=== PATIENT | female | born 1985 | race Caucasian/White ===

== ENCOUNTER 2023-12-16 11:40 | Emergency (ER) | payer OTHER, SELFPAY ==
[2023-12-16 11:42] VITALS: BP 142/82
[2023-12-16 12:14] LABS: COVID-19 Antigen Negative (Negative)
--- NOTE | 2023-12-16 13:30 | ED.GENMED ---
History of Present Illness
General
Chief Complaint: Cold/Flu/URI Symptoms
Source: patient
Exam Limitations: none
Time Seen by Provider: 12/16/23 12:49
Nursing documentation reviewed up to this point in time: agreed with
Travel History
Have you had any contact with someone who has COVID-19?: No
Do you have any symptoms of coronavirus? Fever > 100 degrees, chills, cough, shortness of breath, sore throat, loss of taste or smell, muscle aches, or headache?: Yes
Symptoms:: SOB
History of Present Illness
History of Present Illness:
pt is a 38 y/o F with h/o newly diagnosed marginal zone splenic lymphoma ([facility], has not started treatment yet)
here with sob and cough
started with cough and cold sypmtoms 4 dyas ago, cough has been spastic at times and now her ribs feel sore but since yesterday sh efeels like she cannot catch her breath and she has a pain in her left lower ribs/upper abd with deep breathing. she
has splenomegaly related to her lymphoma
she has not had any trauma to her abdomen
no fever/chills, sore throat, vomiting, diarrhea.
Past History
Past History
ED Past Medical History: None
ED Past Surgical History:
Social History
Tobacco: Non-smoker
Personal:
Living: with family
Family History
Family History: Other (Noncontributory)
Review of Systems
Review of Systems
Allergies reviewed?: Yes
All Other Systems: Not applicable
Phy Exam
Physical Exam
Physical Exam:
GENERAL: Alert , in no apparent distress
EYE: pupils equal and reactive
NECK: Supple
ENT: o/p clr, mmm.
CARDIAC: Regular rate and rhythm .no tachycardia
LUNGS: cough, no tachypnea, holding left lower ribs with coughing; rhonchi left base; no wheezing
ribs: slight tenderness left lower atnerior
no deformity
ABDOMEN: Soft, without focal tenderness, no r/g, no cvat, normal bowel sounds
NEUROLOGICAL: Alert and oriented, no focal neuro deficits
SKIN: Warm and dry, skin intact.
MUSCULOSKELETAL: No edema, well perfused. neg angelina's sign
PSYCH: Normal and appropriate interaction.
Course
Orders/Labs/Results
Orders:
Orders
12/16/23 11:47
CR Chest - 2 Views Urgent
Comment:
Reason For Exam: SOB
12/16/23 11:51
COVID-19 Antigen Urgent
Source: Nasal Swab
Influenza A+B Rapid Molecular Urgent
SHIMA Source: Nasal Swab
Specimen Description:
12/16/23 13:33
Ketorolac [Toradol] 15 mg IV NOW STA
12/16/23 13:34
CT Chest Pe Study Urgent
Comment:
Reason For Exam: left pleuritic pain, h/o new splenic lymphoma
12/16/23 13:35
Electrocardiogram (*1) Urgent
Reason for Study: Shortness of Breath
EKG- Treatment ONCE
12/16/23 13:42
Test Result ONCE
12/16/23 14:14
Complete Blood Count/With Diff Urgent
Comprehensive Metabolic Panel Urgent
HCG, Serum Qualitative Screen Urgent
Lipase Urgent
Abnormal Lab Results
12/16/23
14:14
WBC 4.2 L 10^3/uL
(4.8-10.8)
Hgb 11.7 L g/dL
(12.0-16.0)
Hct 35.4 L %
(37.0-47.0)
MCV 77.6 L fL
(81.0-99.0)
MCH 25.7 L pg
(27.0-31.0)
RDW 14.6 H %
(11.5-14.5)
Plt Count 123 L 10^3/uL
(130-400)
Absolute Lymphs (auto) 0.9 L 10^3/uL
(1.2-3.4)
Glucose 100 H mg/dl
(70-99)
12/16/23 14:14
12/16/23 14:14
Vital Signs
Initial and Last Documented VS:
Initial Vital Signs
Temp Pulse Resp BP Pulse Ox
98.2 F 89 20 142/82 100
12/16/23 11:42 12/16/23 11:42 12/16/23 11:42 12/16/23 11:42 12/16/23 11:42
Last Documented Vital Signs
Temp Pulse Resp BP Pulse Ox
98.2 F 72 18 130/60 99
12/16/23 11:42 12/16/23 15:58 12/16/23 15:58 12/16/23 15:58 12/16/23 15:58
MDM/Problems Addressed
Differential Diagnosis Includes:
PE pneumonia, splenic rupture
MDM/Problems Addressed:
38 y/o F with cough x a few days, now with left lower rib pain
in setting of splenomegaly related to a form of NHL
hasn't started treatmnet yet
instructed to get seen by onc
here with normal pulse ox
slght tenderness left lower rib
splenomegaly but wihtout signficatn tendenress
most pain is with deep breathing
pt has spastic cough
wbc slightly low
flu and covid neg
chest xray indep reviewed by me and neg
ct chest no PE
no pneurmoina
known splenomegaly
d/w ed attending
d/c home,
offered steroids to patient BUT SHE WILL REACH OUT TO HER ONCOLOGIST, WAS DOIN IT WHILE I WAS IN THE ROOM, ON HER PATIENT PORTAL TO ASK IF THIS IS OK TO TAKE for her cough
tessalon
pt is requesting codeine to help with cough
will do a few t#3.
*Critical Care Note
Total Time (30-74mins, 75-104mins- exclusive of procedures): Not Applicable
ED Attending Note
-
Portions of this chart may have been created with voice recognition software.� Occasional wrong word or��sound alike� substitutions may have occurred due to the inherent limitations of voice recognition software.
Discharge Plan
Departure
Patient Disposition: Home (Routine Discharge)
Date of Disposition: 12/16/23
Time of Disposition: 15:32
Patient with high blood pressure during this ER visit?: No
Condition: Fair
Covid-19: Not Applicable
Discharge Problem:
Bronchitis, Chest wall pain
Instructions: Acute Bronchitis, Adult (DC)
Prescriptions:
New
benzonatate 200 mg capsule
200 mg PO TID PRN (Reason: Cough) Qty: 15 0RF
acetaminophen-codeine 300-15 mg tablet
1 tab PO HS PRN (Reason: cough) Qty: 10 0RF
prednisone 50 mg tablet
50 mg PO DAILY Qty: 5 0RF
No Action
ibuprofen 600 MG tablet
600 mg PO Q4HPRN PRN (Reason: moderate pain/cramps) Qty: 30 0RF
multivitamin with folic acid [Tab-A-Ac] 1 TABLET tablet
1 tab PO DAILY
Oxycodone
1 - 2 tab PO Q4HPRN PRN (Reason: pain)
hydrocodone-acetaminophen 5-325 mg tablet
1 tab PO Q6H PRN (Reason: pain) Qty: 10 0RF
prednisone 10 mg tablets,dose pack
See Rx Instructions .ROUTE .COMPLEX Qty: 21 0RF
Rx Instructions:
orally per package directions
Referrals:
Maria Esther Palacios PA [Family Provider] -
Activity Restrictions/Additional Instructions:
For your bronchitis you can use guaifenesin which is Mucinex [id number] as needed. This will help loosen the secretions he can cough it up. You can continue your inhaler as needed every 4-6 hours. Try Tessalon pearls 2 times a day. If you
absolutely are having too much pain or cannot sleep you can try a Tylenol with codeine at night. (ONE OR TWO TABS AT NIGHT NEEDED)
I prescribed a few days of steroids, make sure your oncologist is okay with this before starting them. Take once a day starting today if you are able to. If her symptoms persist past 10 days you could consider calling your doctor or being seen
again to see if whether you need some antibiotics.
Return for worsening chest pain or shortness of breath, passing out, high fever or any concerns
Interventions
Interventions:
*Risk Screen - Suicide Last Done: 12/16/23 11:45
*General Assessment Last Done: 12/16/23 11:45
*Neglect/Abuse Screening Last Done: 12/16/23 11:45
ED- Fall Risk Assessment Last Done: 12/16/23 13:54
*ED COVID-19 Vaccine History Last Done: 12/16/23 11:46
*Nursing Disposition Last Done: 12/16/23 15:58
ED- Cardiac Assessment Last Done: 12/16/23 13:54
ED- Pulmonary Assessment Last Done: 12/16/23 13:54
Discharge Date and Time
Discharge Date/Time: 12/16/23 15:59
[2023-12-16 13:54] VITALS: BMI 33.7
[2023-12-16 14:17] VITALS: BP 114/61
[2023-12-16] MEDS: TORADOL 15 MG IV (14:24)
[2023-12-16 14:28] LABS: % Basophils 0.2 % (0-2); % Eosinophils 2.8 % (0-6); % Immature Granulocytes 0.2 % (0-0.5); % Monocytes 6.4 % (1.7-9.3); % Neutrophils 69.4 % (42.2-75.2); Absolute Eosinophils 0.1 10^3/uL (0-0.7); Absolute Lymphocytes 0.9 10^3/uL (1.2-3.4); Absolute Monocytes 0.3 10^3/uL (0.1-0.6); Absolute Neutrophils 2.9 10^3/uL (1.4-6.5); Hematocrit 35.4 % (37.0-47.0); Hemoglobin 11.7 g/dL (12.0-16.0); Mean Corp Hgb Conc. 33.1 g/dL (33.0-37.0); Mean Corpuscular Hgb 25.7 pg (27.0-31.0); Mean Corpuscular Volume 77.6 fL (81.0-99.0); Mean Platelet Volume 9.5 fL (7.4-10.4); Nucleated Red Blood Cells % 0 %; Platelet Count 123 10^3/uL (130-400); Red Blood Cell Count 4.56 10^6/uL (4.20-5.40); Red Cell Dist. Width 14.6 % (11.5-14.5); White Blood Cell Count 4.2 10^3/uL (4.8-10.8)
[2023-12-16 14:35] LABS: HCG, Serum Qualitative Screen Negative
[2023-12-16 14:39] LABS: ALT (SGPT) 28 U/L (0-35); AST (SGOT) 35 U/L (14-36); Albumin 4.1 g/dl (3.5-5.0); Alkaline Phosphatase 75 U/L (38-126); Blood Urea Nitrogen 8 mg/dl (7-17); Carbon Dioxide 28 mmol/L (22-30); Chloride 106 mmol/L (98-107); Estimated Creatinine Clearance > 125 ml/min; Glucose 100 mg/dl (70-99); Lipase 62 U/L (23-300); Potassium 4.3 mmol/L (3.5-5.1); Sodium 139 mmol/L (135-145); Total Bilirubin 0.7 mg/dl (0.2-1.3); Total Protein 6.6 g/dl (6.3-8.2); eGFR > 60.00
--- NOTE | 2023-12-16 15:55 | EDRN ---
Reviewed discharge instructions with patient. Verbalized understanding. Ambulated with steady gait to the lobby.
[2023-12-16 15:58] VITALS: BP 130/60
== END 2023-12-16 15:59 | disposition home or self-care (01) ==
LOC: EMR 11:40
PROVIDERS: Emergency Medicine; Physician Assistant; EMERGENCY PHYSICIAN Emergency Medicine; FAMILY PHYSICIAN Physician Assistant Medical
DX: J40 Bronchitis, not specified as acute or chronic (principal); R07.89 Other chest pain; R16.1 Splenomegaly, not elsewhere classified; C83.00 Small cell B-cell lymphoma, unspecified site; Z11.52 Encounter for screening for COVID-19
CPT/HCPCS: 99285; 96374; 71046; 71275; 80053; 83690; 84703; 85025; 87502; 87811; 93005; Q9967

== ENCOUNTER 2024-02-27 14:18 | Emergency (ER) | payer OTHER, SELFPAY ==
[2024-02-27 14:23] VITALS: BP 129/67
--- NOTE | 2024-02-27 14:43 | ED.GENMED ---
History of Present Illness
General
Chief Complaint: Abdominal Pain
Source: patient
Exam Limitations: none
Time Seen by Provider: 02/27/24 14:39
Travel History
Have you had any contact with someone who has COVID-19?: No
Do you have any symptoms of coronavirus? Fever > 100 degrees, chills, cough, shortness of breath, sore throat, loss of taste or smell, muscle aches, or headache?: No
History of Present Illness
History of Present Illness:
See MDM
Past History
Past History
ED Past Medical History: Cancer (NHL)
ED Past Surgical History:
Social History
Tobacco: Non-smoker
Personal:
Living: with family
Family History
Family History: Other (Noncontributory)
Phy Exam
Physical Exam
Physical Exam:
See MDM
Course
Orders/Labs/Results
Orders:
Orders
02/27/24 14:42
0.9% Sodium Chloride 1000 ml [Nss] 1,000 ml IV BOLUS
Ketorolac [Toradol] 30 mg IV NOW STA
Morphine Sulfate 4 mg IV NOW STA
Ondansetron Injectable [Zofran] 4 mg IV NOW STA
Test Result ONCE
US Abdomen Complete/Upper Urgent
Comment:
Reason For Exam: RUQ pain
02/27/24 14:52
Complete Blood Count/With Diff Urgent
Comprehensive Metabolic Panel Urgent
HCG, Serum Qualitative Screen Urgent
Lipase Urgent
02/27/24 16:03
CT Abd/pelvis W Iv Cont Urgent
Comment: Active NH lymphoma
Reason For Exam: mid abd pain, nausea
02/27/24 16:43
Morphine Sulfate 4 mg IV NOW STA
Abnormal Lab Results
02/27/24
14:52
WBC 20.1 H 10^3/uL
(4.8-10.8)
MCV 77.1 L fL
(81.0-99.0)
RDW 18.2 H %
(11.5-14.5)
Abs Immat Gran (auto) 0.1 H 10^3/uL
(0-0.05)
Absolute Neuts (auto) 17.7 H 10^3/uL
(1.4-6.5)
Absolute Monos (auto) 0.8 H 10^3/uL
(0.1-0.6)
Neutrophils % 88.0 H %
(42.2-75.2)
Lymphocytes % 6.5 L %
(20.5-51.1)
Glucose 102 H mg/dl
(70-99)
Total Bilirubin 2.8 H mg/dl
(0.2-1.3)
02/27/24 14:52
02/27/24 14:52
Vital Signs
Initial and Last Documented VS:
Initial Vital Signs
Temp Pulse Resp BP Pulse Ox
98.0 F 116 24 129/67 100
02/27/24 14:23 02/27/24 14:23 02/27/24 14:23 02/27/24 14:23 02/27/24 14:23
Last Documented Vital Signs
Temp Pulse Resp BP Pulse Ox
98.0 F 116 24 129/67 100
02/27/24 14:23 02/27/24 14:23 02/27/24 14:23 02/27/24 14:23 02/27/24 14:23
MDM/Problems Addressed
Differential Diagnosis Includes:
HPI and MDM Narrative:
38-year-old female presenting with mid and right upper abdominal pain since 230 this morning. Patient states she was unable to sleep. Patient has been nauseous and has vomited. She does have a recent diagnosis of non-Hodgkin's lymphoma. She has
been on rituximab for the past month. She has not had any issues with this medicine in the past
On exam, patient is uncomfortable. She has mid upper and right upper abdominal tenderness. Although abdominal pain, nausea and vomiting is a known adverse effect of rituximab, will obtain ultrasound to rule out gallbladder pathology. Will give
Toradol and morphine
Physical exam
General: Uncomfortable
HEENT: protecting airway
Neck: appears supple
CV: No evidence of cyanosis
Resp: No accessory muscle use
Abd: Non-distended. Tenderness to right upper quadrant abdomen
Extremities: No deformities
Neuro: alert
Psych: Tearful
Skin: Intact
Problems Addressed including Acute and Chronic Conditions affecting care:
1. Right upper quadrant abdominal pain
Acuity: acute
Prognosis: stable
Details: Will obtain ultrasound to rule out gallbladder pathology. Will give Toradol and morphine.
Updates
4 PM ultrasound negative for acute pathology. Splenomegaly has improved. Patient feeling better on reassessment. We discussed the elevated bilirubin and the elevated white blood cell count. Given the lab abnormalities, will obtain CT. Patient
states her bilirubin has been elevated in the past
CT negative for acute pathology. Patient feels better and feels comfortable going home. Discussed having her symptoms and lab work abnormalities reevaluated by her doctor
Differential Diagnosis (but not limited to): Adverse drug effect, pancreatitis, cholecystitis
Testing considered: CT abdomen/pelvis but will obtain ultrasound first
Drug therapy (if applicable): OTC meds, please see d/c instruction regarding Rx drugs
Amount and/or Complexity of Data Reviewed
Clinical info obtained from: Patient
External data reviewed: N/A
Labs I independently reviewed (but not limited to): Leukocytosis, elevated bilirubin
Radiology: The CT scan was personally and independently reviewed. In addition, official CT report reviewed.
Pulse Ox: not hypoxic
EKG independently reviewed: N/A
Awake Overnight Monitor: N/A
Critical Care: N/A
Risk of Complication:
Social Determinants of health: Good social support
Discussed with other providers: N/A
Escalation of Care includes Admit/Obs: After being observed in the Emergency Department, pt stable for discharge.
Occasional wrong word or 'sound a like' substitutions may have occurred due to the inherent limitations of voice recognition software. Read the chart carefully and recognize, using context, where substitutions have occurred.
*Critical Care Note
Total Time (30-74mins, 75-104mins- exclusive of procedures): Not Applicable
ED Attending Note
-
Portions of this chart may have been created with voice recognition software.� Occasional wrong word or��sound alike� substitutions may have occurred due to the inherent limitations of voice recognition software.
Discharge Plan
Departure
Patient Disposition: Home (Routine Discharge)
Date of Disposition: 02/27/24
Time of Disposition: 19:14
Patient with high blood pressure during this ER visit?: No
Discharge Problem:
Abdominal pain
Instructions: Abdominal Pain
Prescriptions:
New
oxycodone 5 mg tablet
5 mg PO Q8H PRN (Reason: Pain) Qty: 14 0RF
No Action
ibuprofen 600 MG tablet
600 mg PO Q4HPRN PRN (Reason: moderate pain/cramps) Qty: 30 0RF
multivitamin with folic acid [Tab-A-Ac] 1 TABLET tablet
1 tab PO DAILY
Oxycodone
1 - 2 tab PO Q4HPRN PRN (Reason: pain)
hydrocodone-acetaminophen 5-325 mg tablet
1 tab PO Q6H PRN (Reason: pain) Qty: 10 0RF
prednisone 10 mg tablets,dose pack
See Rx Instructions .ROUTE .COMPLEX Qty: 21 0RF
Rx Instructions:
orally per package directions
benzonatate 200 mg capsule
200 mg PO TID PRN (Reason: Cough) Qty: 15 0RF
acetaminophen-codeine 300-15 mg tablet
1 tab PO HS PRN (Reason: cough) Qty: 10 0RF
prednisone 50 mg tablet
50 mg PO DAILY Qty: 5 0RF
Referrals:
Maria Esther Palacios PA [Family Provider] -
Activity Restrictions/Additional Instructions:
Please return for any worsening symptoms.
You may return at any time if you have further concerns.
Please follow up with your doctor at the first available appointment, preferably this week. Please have your symptoms and blood work reevaluated.
You were given a prescription for narcotics. If you require this pain medicine, please take a daily [id number] stool softener to avoid constipation.
Thank you for choosing [facility].
Interventions
Interventions:
*Risk Screen - Suicide Last Done: 02/27/24 14:54
*Neglect/Abuse Screening Last Done: 02/27/24 14:54
ED- Fall Risk Assessment Last Done: 02/27/24 15:02
*ED COVID-19 Vaccine History Last Done: 02/27/24 14:54
JX-Axdqht-Yhozrxvuse Assessment Last Done: 02/27/24 14:54
Discharge Date and Time
Print Language: [place]
[2024-02-27] MEDS: TORADOL 30 MG IV (14:49)
[2024-02-27] MEDS: MORPHINE SULFATE 4 MG IV ×2 (14:50→16:47)
[2024-02-27] MEDS: ZOFRAN 4 MG IV (14:50)
[2024-02-27] MEDS: NSS 1000 IV (14:51)
[2024-02-27 15:02] LABS: % Basophils 0.4 % (0-2); % Eosinophils 0.6 % (0-6); % Immature Granulocytes 0.5 % (0-0.5); % Lymphocytes 6.5 % (20.5-51.1); Absolute Basophils 0.1 10^3/uL (0-0.2); Absolute Eosinophils 0.1 10^3/uL (0-0.7); Absolute Immature Granulocytes 0.1 10^3/uL (0-0.05); Absolute Lymphocytes 1.3 10^3/uL (1.2-3.4); Absolute Monocytes 0.8 10^3/uL (0.1-0.6); Absolute Neutrophils 17.7 10^3/uL (1.4-6.5); Hematocrit 41.4 % (37.0-47.0); Hemoglobin 14.6 g/dL (12.0-16.0); Mean Corp Hgb Conc. 35.3 g/dL (33.0-37.0); Mean Corpuscular Hgb 27.2 pg (27.0-31.0); Mean Corpuscular Volume 77.1 fL (81.0-99.0); Nucleated Red Blood Cells % 0 %; Platelet Count 148 10^3/uL (130-400); Red Blood Cell Count 5.37 10^6/uL (4.20-5.40); Red Cell Dist. Width 18.2 % (11.5-14.5); White Blood Cell Count 20.1 10^3/uL (4.8-10.8)
[2024-02-27 15:15] LABS: ALT (SGPT) 32 U/L (0-35); AST (SGOT) 25 U/L (14-36); Albumin 4.4 g/dl (3.5-5.0); Alkaline Phosphatase 83 U/L (38-126); Blood Urea Nitrogen 12 mg/dl (7-17); Calcium 9.3 mg/dl (8.4-10.2); Carbon Dioxide 24 mmol/L (22-30); Chloride 101 mmol/L (98-107); Glucose 102 mg/dl (70-99); Lipase 109 U/L (23-300); Potassium 3.9 mmol/L (3.5-5.1); Sodium 137 mmol/L (135-145); Total Bilirubin 2.8 mg/dl (0.2-1.3); Total Protein 6.9 g/dl (6.3-8.2); eGFR > 60.00
[2024-02-27 15:24] LABS: HCG, Serum Qualitative Screen Negative
[2024-02-27 18:30] VITALS: BP 134/88
[2024-02-27] MEDS: PERCOCET 5/325 1 TABLET PO (19:18)
== END 2024-02-27 20:43 | disposition home or self-care (01) ==
LOC: EMR 14:18
PROVIDERS: EMERGENCY PHYSICIAN Student in an Organized Health Care Education/Training Program; FAMILY PHYSICIAN Physician Assistant Medical
DX: R10.9 Unspecified abdominal pain (principal)
CPT/HCPCS: 99285; 96374; 96375 ×2; 96361; 96376; 74177; 76700; 80053; 83690; 84703; 85025; Q9967

== ENCOUNTER → 2024-04-20 10:22 | Outpatient (REF) | payer OTHER, SELFPAY | LOC: PET 10:22 | PROVIDERS: ATTENDING PHYSICIAN Internal Medicine Hematology & Oncology | DX: C83.07 Small cell B-cell lymphoma, spleen (principal) | CPT/HCPCS: 78815; A9552 ==

== ENCOUNTER 2024-06-27 10:37 | Outpatient (RCR) | payer OTHER, SELFPAY | END 2024-06-27 23:59 | disposition home or self-care (01) | LOC: RPT 10:37 | PROVIDERS: ATTENDING PHYSICIAN Physician Assistant Medical | DX: M25.571 Pain in right ankle and joints of right foot (principal); Z73.6 Limitation of activities due to disability; R26.89 Other abnormalities of gait and mobility; R26.2 Difficulty in walking, not elsewhere classified; M62.81 Muscle weakness (generalized); M79.89 Other specified soft tissue disorders | CPT/HCPCS: 97110; 97162 ==

== ENCOUNTER 2024-08-05 13:12 | Emergency (ER) | payer OTHER, SELFPAY ==
[2024-08-05 13:27] VITALS: BP 143/75
--- NOTE | 2024-08-05 15:10 | ED.GENMED ---
History of Present Illness
General
Chief Complaint: Chest Pain
Source: patient and family
Exam Limitations: none
Time Seen by Provider: 08/05/24 14:30
Nursing documentation reviewed up to this point in time: agreed with
History of Present Illness
History of Present Illness:
38-year-old female history of panic disorder, on sertraline, splenic lymphoma followed by Dr. Moreno receives infusions, sounds like Rituxan, no history of CAD no history of DVT PE, 2 prior C-sections does not drink or smoke, presents with a panic
attack chest pain shortness of breath while at a store, similar more severe to prior panic attack she is asking about having a prescription for lorazepam to use as needed, though she states she has not needed now no calf pain no fevers no hemoptysis
Past History
Past History
ED Past Medical History: Cancer (NHL)
ED Past Surgical History:
Social History
Tobacco: Non-smoker
Alcohol: None
Drug: None
Personal:
Living: with family
Employment: Employed
Family History
Family History: Other (Panic disorder and)
Review of Systems
Review of Systems
All Other Systems: Not applicable
Constitutional: Denies fever or fatigue
Respiratory: Reports trouble breathing
Cardiac: Reports chest pain and palpitations; Denies diaphoresis
: Reports no symptoms
Psychiatric: Reports anxiety
Phy Exam
Physical Exam
Physical Exam:
Physical Exam
General: no apparent distress, not acutely ill
Neck: No jaundice
Heart: s1/s2 regular rate and rhythm, no murmur. equal radial pulses.
Lungs: no acute respiratory distress. clear bilaterally
Abdomen: Nontender
Neuro: alert and oriented. no focal neurological deficits
Skin: no rash
Psychiatric: well kept. interactive and cooperative
Extremities: no edema. no calf tenderness
Scores
Heart Score for Chest Pain Patients
STEMI patient?: No
History: Slightly or Non-Suspicious
ECG: Normal
Age: </= 45 years
Risk Factors: No Risk Factors
Troponin: </= Normal Limit
Heart Score for Chest Pain Patients: 0
Heart Score Risk: 2.5% MACE over next 6 weeks
Course
Orders/Labs/Results
Orders:
Orders
08/05/24 13:14
EKG [Electrocardiogram (*1)] Urgent
Reason for Study: Chest Pain
EKG- Treatment ONCE
08/05/24 14:45
IV Insert/Care/Rem.- Treatment PRN
08/05/24 14:46
Cardiac Monitoring- Treatment ONCE
Test Result ONCE
CR Chest - 2 Views Urgent
Comment:
Reason For Exam: cp
08/05/24 16:20
Complete Blood Count/With Diff Urgent
Comprehensive Metabolic Panel Urgent
D-Dimer Urgent
HCG, Serum Qualitative Screen Urgent
Magnesium Urgent
TSH Urgent
Troponin I Urgent
Abnormal Lab Results
08/05/24
16:20
RDW 14.7 H %
(11.5-14.5)
08/05/24 16:20
08/05/24 16:20
Vital Signs
Initial and Last Documented VS:
Initial Vital Signs
Temp Pulse Resp BP Pulse Ox
98.2 F 88 16 143/75 100
08/05/24 13:27 08/05/24 13:27 08/05/24 13:27 08/05/24 13:27 08/05/24 13:27
Last Documented Vital Signs
Temp Pulse Resp BP Pulse Ox
98.2 F 88 16 143/75 100
08/05/24 13:27 08/05/24 13:27 08/05/24 13:27 08/05/24 13:27 08/05/24 13:27
MDM/Problems Addressed
Differential Diagnosis Includes:
Panic disorder arrhythmia PE doubt ACS unlikely pneumothorax
MDM/Problems Addressed:
Chest pain shortness of breath
Chronic conditions affecting care: Psychiatric illness and Cancer
Acute Exacerbation and/or Progression of Chronic Illness: Psychiatric illness and Cancer
*EKG
Interpreted by ED Provider?: Yes
Interpretation: normal
Comparison EKG: no comparison EKG present
[place]: normal axis
Ischemia: no ischemia
*Test Kitchen Home Economist Interpretation
Rate: normal
Interpretation: normal
Heart Rate: 78
Rhythm: sinus
*Critical Care Note
Total Time (30-74mins, 75-104mins- exclusive of procedures): Not Applicable
Update Note
Update Note:
Update chest x-ray noted troponin D-dimer noted
Patient updated she appears comfortable
ED Attending Note
-
Portions of this chart may have been created with voice recognition software.� Occasional wrong word or��sound alike� substitutions may have occurred due to the inherent limitations of voice recognition software.
Discharge Plan
Departure
Patient Disposition: Home (Routine Discharge)
Date of Disposition: 08/05/24
Time of Disposition: 17:06
Patient with high blood pressure during this ER visit?: No
Condition: Good
Covid-19: Not Applicable
Discharge Problem:
Panic attack
Instructions: Chest Pain PCP Follow Up, Panic Attack ED
Prescriptions:
New
lorazepam [Ativan] 1 mg tablet
1 mg PO DAILY PRN (Reason: anxiety) Qty: 10 0RF
No Action
ibuprofen 600 MG tablet
600 mg PO Q4HPRN PRN (Reason: moderate pain/cramps) Qty: 30 0RF
multivitamin with folic acid [Tab-A-Ac] 1 TABLET tablet
1 tab PO DAILY
Oxycodone
1 - 2 tab PO Q4HPRN PRN (Reason: pain)
hydrocodone-acetaminophen 5-325 mg tablet
1 tab PO Q6H PRN (Reason: pain) Qty: 10 0RF
prednisone 10 mg tablets,dose pack
See Rx Instructions .ROUTE .COMPLEX Qty: 21 0RF
Rx Instructions:
orally per package directions
benzonatate 200 mg capsule
200 mg PO TID PRN (Reason: Cough) Qty: 15 0RF
acetaminophen-codeine 300-15 mg tablet
1 tab PO HS PRN (Reason: cough) Qty: 10 0RF
prednisone 50 mg tablet
50 mg PO DAILY Qty: 5 0RF
oxycodone 5 mg tablet
5 mg PO Q8H PRN (Reason: Pain) Qty: 14 0RF
Referrals:
Maria Esther Palacios PA [Family Provider] - Next open appointment
Activity Restrictions/Additional Instructions:
Continue your sertraline as prescribed
You can use lorazepam 1 mg as needed for severe anxiety
Follow-up with your primary care provider
Interventions
Interventions:
*Risk Screen - Suicide Last Done: 08/05/24 13:27
*General Assessment Last Done: 08/05/24 13:27
*Neglect/Abuse Screening Last Done: 08/05/24 13:27
Discharge Date and Time
Print Language: [place]
[2024-08-05 16:33] LABS: % Basophils 0.2 % (0-2); % Immature Granulocytes 0.4 % (0-0.5); % Lymphocytes 20.6 % (20.5-51.1); % Monocytes 5.9 % (1.7-9.3); % Neutrophils 70.9 % (42.2-75.2); Absolute Eosinophils 0.2 10^3/uL (0-0.7); Absolute Lymphocytes 1.7 10^3/uL (1.2-3.4); Absolute Monocytes 0.5 10^3/uL (0.1-0.6); Absolute Neutrophils 5.9 10^3/uL (1.4-6.5); Hematocrit 37.2 % (37.0-47.0); Mean Corp Hgb Conc. 34.9 g/dL (33.0-37.0); Mean Corpuscular Hgb 28.7 pg (27.0-31.0); Mean Corpuscular Volume 82.1 fL (81.0-99.0); Mean Platelet Volume 9.9 fL (7.4-10.4); Nucleated Red Blood Cells % 0 %; Platelet Count 182 10^3/uL (130-400); Red Blood Cell Count 4.53 10^6/uL (4.20-5.40); Red Cell Dist. Width 14.7 % (11.5-14.5); White Blood Cell Count 8.3 10^3/uL (4.8-10.8)
[2024-08-05 16:48] LABS: D-Dimer < 0.27 ug/mlFEU (0.00-0.50)
[2024-08-05 16:52] LABS: HCG, Serum Qualitative Screen Negative
[2024-08-05 16:54] LABS: ALT (SGPT) 21 U/L (0-35); AST (SGOT) 29 U/L (14-36); Albumin 4.7 g/dl (3.5-5.0); Alkaline Phosphatase 67 U/L (38-126); Blood Urea Nitrogen 13 mg/dl (7-17); Calcium 9.7 mg/dl (8.4-10.2); Carbon Dioxide 29 mmol/L (22-30); Chloride 101 mmol/L (98-107); Glucose 93 mg/dl (70-99); Magnesium 2.1 mg/dl (1.6-2.3); Sodium 141 mmol/L (135-145); Total Bilirubin 1.3 mg/dl (0.2-1.3); Total Protein 7.1 g/dl (6.3-8.2); eGFR > 60.00
[2024-08-05 16:56] LABS: Troponin I < 0.012 ng/ml
[2024-08-05 17:25] LABS: TSH 1.59 uIU/ml (0.47-4.68)
[2024-08-05 18:15] VITALS: BP 138/72
== END 2024-08-05 18:15 | disposition home or self-care (01) ==
LOC: EMR 13:12
PROVIDERS: EMERGENCY PHYSICIAN Emergency Medicine; FAMILY PHYSICIAN Physician Assistant Medical
DX: F41.0 Panic disorder [episodic paroxysmal anxiety] (principal)
CPT/HCPCS: 99285; 71046; 80053; 83735; 84443; 84484; 84703; 85025; 85379; 93005

== ENCOUNTER 2024-08-08 13:00 | Outpatient (RCR) | payer OTHER, SELFPAY | END 2024-08-08 23:59 | disposition home or self-care (01) | LOC: RPT 13:00 | PROVIDERS: ATTENDING PHYSICIAN Physician Assistant Medical | DX: M25.571 Pain in right ankle and joints of right foot (principal); Z73.6 Limitation of activities due to disability; R26.89 Other abnormalities of gait and mobility; M62.81 Muscle weakness (generalized); R26.2 Difficulty in walking, not elsewhere classified | CPT/HCPCS: 97010; 97110; 97112; 97140; 97530 ==

== ENCOUNTER → 2024-08-16 10:20 | Outpatient (REF) | payer OTHER, SELFPAY | LOC: PET 10:20 | PROVIDERS: ATTENDING PHYSICIAN Internal Medicine Hematology & Oncology | DX: C83.07 Small cell B-cell lymphoma, spleen (principal) | CPT/HCPCS: 78815; A9552 ==

== ENCOUNTER 2024-09-06 13:12 | Outpatient (RCR) | payer OTHER, SELFPAY | END 2024-09-06 23:59 | disposition home or self-care (01) | LOC: RPT 13:12 | PROVIDERS: ATTENDING PHYSICIAN Physician Assistant Medical | DX: M25.571 Pain in right ankle and joints of right foot (principal); Z73.6 Limitation of activities due to disability; R26.89 Other abnormalities of gait and mobility; M62.81 Muscle weakness (generalized); R26.2 Difficulty in walking, not elsewhere classified | CPT/HCPCS: 97010; 97110; 97112 ==

== ENCOUNTER 2024-10-25 13:30 | Outpatient (RCR) | payer OTHER, SELFPAY | END 2024-10-25 23:59 | disposition home or self-care (01) | LOC: RPT 13:30 | PROVIDERS: ATTENDING PHYSICIAN Physician Assistant Medical | DX: M25.571 Pain in right ankle and joints of right foot (principal); Z73.6 Limitation of activities due to disability; R26.89 Other abnormalities of gait and mobility; M62.81 Muscle weakness (generalized); R26.2 Difficulty in walking, not elsewhere classified | CPT/HCPCS: 97010; 97110; 97112 ==

== ENCOUNTER → 2025-02-19 11:04 | Outpatient (REF) | payer OTHER, SELFPAY | LOC: PET 11:04 | PROVIDERS: ATTENDING PHYSICIAN Internal Medicine Hematology & Oncology | DX: C83.07 Small cell B-cell lymphoma, spleen (principal) | CPT/HCPCS: 78815; A9552 ==

== ENCOUNTER → 2025-05-14 12:04 | Outpatient (REF) | payer OTHER, SELFPAY | LOC: PET 12:04 | PROVIDERS: ATTENDING PHYSICIAN Internal Medicine Hematology & Oncology | DX: C83.07 Small cell B-cell lymphoma, spleen (principal) | CPT/HCPCS: 78815; A9552 ==

== ENCOUNTER 2025-06-16 15:54 | Emergency (ER) | payer OTHER, SELFPAY ==
[2025-06-16 16:01] VITALS: BP 135/101
[2025-06-16 16:47] LABS: Hematocrit 38.2 % (37.0-47.0); Hemoglobin 13.3 g/dL (12.0-16.0); Mean Corp Hgb Conc. 34.8 g/dL (33.0-37.0); Mean Corpuscular Volume 87.6 fL (81.0-99.0); Nucleated Red Blood Cells % 0 %; Platelet Count 169 10^3/uL (130-400); Red Cell Dist. Width 13.2 % (11.5-14.5)
[2025-06-16 17:19] LABS: Troponin I < 0.012 ng/ml
[2025-06-16 17:24] LABS: HCG, Serum Qualitative Screen Negative
[2025-06-16 17:28] LABS: ALT (SGPT) 24 U/L (0-35); AST (SGOT) 25 U/L (14-36); Albumin 4.6 g/dl (3.5-5.0); Alkaline Phosphatase 63 U/L (38-126); Blood Urea Nitrogen 7 mg/dl (7-17); Calcium 9.1 mg/dl (8.4-10.2); Carbon Dioxide 28 mmol/L (22-30); Chloride 105 mmol/L (98-107); Glucose 83 mg/dl (70-99); Potassium 4.1 mmol/L (3.5-5.1); Sodium 138 mmol/L (135-145); Total Protein 6.7 g/dl (6.3-8.2); eGFR > 60.00
[2025-06-16 17:37] VITALS: BP 109/54
[2025-06-16 18:00] VITALS: BP 105/66
[2025-06-16 18:14] VITALS: BMI 34.2
[2025-06-16 19:00] VITALS: BP 111/69
--- NOTE | 2025-06-16 19:10 | ED.GENMED ---
History of Present Illness
General
Chief Complaint: Chest Pain
Source: patient
Exam Limitations: none
Time Seen by Provider: 06/16/25 19:01
Nursing documentation reviewed up to this point in time: agreed with
History of Present Illness
History of Present Illness:
39 yr old female presents to the ER for evaluation palpitations. Patient reports starting on Wednesday she has had intermittent palpitations since and today they were worse. She does have a history of palpitations but reports this episode has been
more consistent. She also has a history of anxiety but does not feel that this is her anxiety she did recently wean off her sertraline for the past 3 weeks. With the palpitations she does describe a racing heart sensation reports when she has
looked at her watch her heart rate has been as high as 101. Triage note states that patient's watch asked her if she wanted to call emergency services but she feels that she may have hit and prompted this.
She presently is asymptomatic. She denies any associated chest pain/S OB with her symptoms. She drinks mininmal caffeine.
Past History
Past History
ED Past Medical History: Cancer ([facility])
ED Past Surgical History:
Social History
Tobacco: Non-smoker
Alcohol: None
Drug: None
Personal:
Living: with family
Employment: Employed
Family History
Family History: Other (Panic disorder and)
Phy Exam
General Physical Exam
General Presentation: no apparent distress
General age: appears stated age
General Skin: warm and dry
General Habitus: normal
General Mental: alert
General Hydration: appears well hydrated
Cardiovascular Exam
Cardiovascular Exam: regular rate/rhythm, no murmur and normal peripheral pulses
Pulmonary Exam
Pulmonary Exam: lungs clear and no respiratory distress
Neurological Exam
Neurological Exam: alert and oriented x3
Musculoskeletal Exam
Musculoskeletal Exam: full ROM
Skin Exam
Skin Exam: normal color and warm/dry
Psychiatric Exam
Psychiatric Exam: normal mood/affect
Scores
Heart Score for Chest Pain Patients
STEMI patient?: Not applicable
Course
Orders/Labs/Results
Orders:
Orders
06/16/25 15:55
Electrocardiogram (*1) Urgent
Reason for Study: Chest Pain
EKG- Treatment ONCE
06/16/25 16:00
Test Result ONCE
06/16/25 16:08
Complete Blood Count/With Diff Urgent
Comprehensive Metabolic Panel Urgent
HCG, Serum Qualitative Screen Urgent
Comment: Notify provider if positive test present
TSH Reflex To Free T4 Urgent
Comment: ADD ON
Troponin I Urgent
06/16/25 19:20
Add On- LAB Urgent
Tests Added?: tsh with reflexive t4
Abnormal Lab Results
06/16/25
16:08
MPV 10.8 H fL
(7.4-10.4)
Absolute Neuts (auto) 6.7 H 10^3/uL
(1.4-6.5)
Absolute Monos (auto) 0.8 H 10^3/uL
(0.1-0.6)
Lymphocytes % 17.6 L %
(20.5-51.1)
06/16/25 16:08
06/16/25 16:08
Vital Signs
Initial and Last Documented VS:
Initial Vital Signs
Temp Pulse Resp BP Pulse Ox
98.6 F 85 16 135/101 100
06/16/25 16:01 06/16/25 16:01 06/16/25 16:01 06/16/25 16:01 06/16/25 16:01
Last Documented Vital Signs
Temp Pulse Resp BP Pulse Ox
98.6 F 74 13 105/66 100
06/16/25 16:01 06/16/25 18:00 06/16/25 18:00 06/16/25 18:00 06/16/25 19:27
MDM/Problems Addressed
Differential Diagnosis Includes:
Not limited to palpitations, dehydration, anxiety
MDM/Problems Addressed:
Patient has a history palpitations in the past however presented for more consistent palpitations over the past several days. No associated chest pain no associated shortness of breath she is not on oral contraception she is nontachycardic here no
prior history PE DVT she is a non-smoker. Patient with normal labs normal TSH. She does have a history anxiety and recently decreased her sertraline but does not feel like this is her anxiety this is different than her typical anxiety.
Will DC with outpatient cardiology follow-up likely will need a Holter monitor
Chronic conditions affecting care:
Anxiety history of palpitations
*Pulse Oximetry
SaO2: 100
Oxygen Mode of Delivery: Room air
Patient hypoxic: no
*EKG
Interpreted by ED Provider?: Yes
Heart Rate: 82
Rate: normal
Rhythm: sinus
Ischemia: no ischemia
*Critical Care Note
Total Time (30-74mins, 75-104mins- exclusive of procedures): Not Applicable
ED Attending Note
-
Portions of this chart may have been created with voice recognition software.� Occasional wrong word or��sound alike� substitutions may have occurred due to the inherent limitations of voice recognition software.
Discharge Plan
Departure
Patient Disposition: Home (Routine Discharge)
Date of Disposition: 06/16/25
Time of Disposition: 21:04
Patient with high blood pressure during this ER visit?: Yes
Condition: Fair
Covid-19: Not Applicable
Discharge Problem:
Palpitations
Instructions: Palpitations - ED (DC)
Prescriptions:
No Action
ibuprofen 600 MG tablet
600 mg PO Q4HPRN PRN (Reason: moderate pain/cramps) Qty: 30 0RF
multivitamin with folic acid [Tab-A-Ac] 1 TABLET tablet
1 tab PO DAILY
Oxycodone
1 - 2 tab PO Q4HPRN PRN (Reason: pain)
hydrocodone-acetaminophen 5-325 mg tablet
1 tab PO Q6H PRN (Reason: pain) Qty: 10 0RF
prednisone 10 mg tablets,dose pack
See Rx Instructions .ROUTE .COMPLEX Qty: 21 0RF
Rx Instructions:
orally per package directions
benzonatate 200 mg capsule
200 mg PO TID PRN (Reason: Cough) Qty: 15 0RF
acetaminophen-codeine 300-15 mg tablet
1 tab PO HS PRN (Reason: cough) Qty: 10 0RF
prednisone 50 mg tablet
50 mg PO DAILY Qty: 5 0RF
oxycodone 5 mg tablet
5 mg PO Q8H PRN (Reason: Pain) Qty: 14 0RF
lorazepam [Ativan] 1 mg tablet
1 mg PO DAILY PRN (Reason: anxiety) Qty: 10 0RF
Referrals:
Maria Esther Palacios PA [Family Provider, Family Practice]
Bob Easley MD [Active, Cardiology]
Activity Restrictions/Additional Instructions:
As discussed please call cardiology Wednesday to make an appointment in the next several days. Return if any worsening of symptoms including worsening palpitations chest pain or shortness of breath.
Interventions
Interventions:
*Risk Screen - Suicide Last Done: 06/16/25 16:01
*Neglect/Abuse Screening Last Done: 06/16/25 16:01
*ED- Fall Risk Assessment Last Done: 06/16/25 16:01
ED- Cardiac Assessment Last Done: 06/16/25 18:21
Discharge Date and Time
Print Language: CYMRAES
[2025-06-16 20:00] VITALS: BP 116/67
[2025-06-16 21:00] VITALS: BP 101/57
== END 2025-06-16 21:33 | disposition home or self-care (01) ==
LOC: EMR 15:54
PROVIDERS: EMERGENCY PHYSICIAN Emergency Medicine; FAMILY PHYSICIAN Physician Assistant Medical
DX: R00.2 Palpitations (principal); F41.9 Anxiety disorder, unspecified; Z82.49 Family history of ischemic heart disease and other diseases of the circulatory system; Z98.891 History of uterine scar from previous surgery
CPT/HCPCS: 99283; 80053; 84443; 84484; 84703; 85025; 93005

== ENCOUNTER 2025-07-09 09:10 | Emergency (ER) | payer OTHER, SELFPAY ==
[2025-07-09 09:16] VITALS: BP 139/76
[2025-07-09 10:59] LABS: Hematocrit 38.8 % (37.0-47.0); Hemoglobin 13.4 g/dL (12.0-16.0); Mean Corp Hgb Conc. 34.5 g/dL (33.0-37.0); Mean Corpuscular Volume 85.5 fL (81.0-99.0); Nucleated Red Blood Cells % 0 %; Platelet Count 144 10^3/uL (130-400); Red Cell Dist. Width 13.2 % (11.5-14.5)
--- NOTE | 2025-07-09 11:03 | ED.GENMED ---
History of Present Illness
General
Chief Complaint: Abdominal Pain
Source: patient
Exam Limitations: none
Time Seen by Provider: 07/09/25 10:24
Nursing documentation reviewed up to this point in time: agreed with
History of Present Illness
History of Present Illness:
39-year-old female with a past medical history of marginal splenic lymphoma who presents to the ER for evaluation of abdominal pain. Patient reports that she has chronic upper abdominal pain related to her lymphoma. She says that over the past few
days she has noticed a change in her pain that she describes typical pain in the epigastrium towards the left upper quadrant but now is having some pain radiating towards the right upper and lower abdomen. She says this is unusual for her. She
denies any nausea. She denies any diarrhea. She denies any vaginal bleeding or discharge. She has not had any urinary symptoms. She does report that she had darker than usual stools x 1 episode last night. She also apparently reported some mild
back pains. Also having some mild fatigue and bloating. No other acute complaints.
Past History
Past History
ED Past Medical History: Cancer ([facility])
ED Past Surgical History:
Social History
Tobacco: Non-smoker
Alcohol: None
Drug: None
Personal:
Living: with family
Employment: Employed
Family History
Family History: Other (Panic disorder and)
Review of Systems
Review of Systems
All Other Systems: ROS reviewed and negative except as documented in HPI and ROS
Constitutional: Denies fever or chills
Respiratory: Denies trouble breathing
Cardiac: Denies chest pain
ABD/GI: Reports abdominal pain and anorexia; Denies vomiting or diarrhea
: Denies dysuria, frequency, flank pain or bleeding
Musculoskeletal: Reports back pain; Denies neck pain
Neurological: Denies headache, weakness or numbness
Phy Exam
Physical Exam
Physical Exam:
General: Awake, alert, oriented x3; no acute distress
Head: Normocephalic, atraumatic
Eyes: Conjunctiva normal, sclera anicteric
Throat: Airway intact, handling secretions
Neck: Trachea midline, supple without meningismus
Lungs: Clear to auscultation bilaterally, no wheezing, rales, rhonchi
Heart: Regular rate and rhythm, no murmurs, gallops, or rubs
Abd: Soft, non distended, mild to moderate tenderness epigastrium, left upper quadrant, right upper quadrant, minimally tender right lower quadrant; no appreciable masses or hernias
Back: No CVA tenderness
Neuro: Grossly intact
Skin: No rash in area of concern
Extremities: Warm and well-perfused
Scores
Heart Failure Risk
Heart Failure Risk Score: Not Applicable
Heart Score for Chest Pain Patients
STEMI patient?: Not applicable
Withdrawal Assessment of Alcohol
Withdrawal Assessment Completed?: Not applicable
Course
Orders/Labs/Results
Orders:
Orders
07/09/25 10:33
CT Abd/pelvis W Iv Cont Urgent
Comment:
Reason For Exam: abdominal pain in epigastrium, RUQ, RLQ
Test Result ONCE
07/09/25 10:41
Complete Blood Count/With Diff Urgent
Comprehensive Metabolic Panel Urgent
HCG, Serum Qualitative Screen Urgent
Lipase Urgent
07/09/25 11:06
Urinalysis Reflex To Culture Urgent
Date Specimen was Collected: 07/09/25
Time Specimen was Collected: 11:04
Abnormal Lab Results
07/09/25
10:41
MPV 10.5 H fL
(7.4-10.4)
Lymphocytes % 16.2 L %
(20.5-51.1)
Total Bilirubin 1.5 H mg/dl
(0.2-1.3)
07/09/25 10:41
07/09/25 10:41
Vital Signs
Initial and Last Documented VS:
Initial Vital Signs
Temp Pulse Resp BP Pulse Ox
36.8 C 95 16 139/76 98
07/09/25 09:16 07/09/25 09:16 07/09/25 09:16 07/09/25 09:16 07/09/25 09:16
Last Documented Vital Signs
Temp Pulse Resp BP Pulse Ox
36.8 C 95 16 139/76 98
07/09/25 09:16 07/09/25 09:16 07/09/25 09:16 07/09/25 09:16 07/09/25 11:08
MDM/Problems Addressed
Differential Diagnosis Includes:
Diffuse pain with wide differential includes but not limited to: Gastritis, enteritis, pancreatitis, cholelithiasis, cholecystitis, appendicitis, diverticulitis, nephrolithiasis, UTI, lymphoma/cancer related
MDM/Problems Addressed:
39-year-old female presents for evaluation of abdominal pain�she has chronic pain related to lymphoma but says she is having change in her symptoms recently. Vitals and exam as above. Plan to check labs including CBC and a CMP, hCG, urinalysis.
Will check CT abdomen pelvis. Monitor closely reassess at the above.
Labs reviewed: CBC unremarkable, CMP no clinically significant abnormalities. Lipase normal. Her hCG is negative. Urinalysis bland. CT abdomen pelvis shows no acute pathology to account for symptoms. Clinical reassessment patient remains
resting comfortably in bed, stable vital signs. Low suspicion for emergent pathology at this point. Given location of pain it could be gastritis or PUD. Can trial PPI. Referred to GI for follow-up. Also advised her to follow-up with her
oncology team and primary doctor given the symptoms. She feels comfortable with this plan. All questions answered.
Chronic conditions affecting care:
Lymphoma
*Pulse Oximetry
SaO2: 98
Oxygen Mode of Delivery: Room air
Patient hypoxic: no (98%)
*Critical Care Note
Total Time (30-74mins, 75-104mins- exclusive of procedures): Not Applicable
Data Reviewed
Source: patient and records
ED Attending Note
-
Portions of this chart may have been created with voice recognition software.� Occasional wrong word or��sound alike� substitutions may have occurred due to the inherent limitations of voice recognition software.
Discharge Plan
Departure
Patient Disposition: Home (Routine Discharge)
Date of Disposition: 07/09/25
Time of Disposition: 13:21
Patient with high blood pressure during this ER visit?: No
Discharge Problem:
Abdominal pain
Instructions: Abdominal Pain
Prescriptions:
New
pantoprazole 40 mg tablet,delayed release (DR/EC)
40 mg PO DAILY Qty: 30 0RF
No Action
ibuprofen 600 MG tablet
600 mg PO Q4HPRN PRN (Reason: moderate pain/cramps) Qty: 30 0RF
multivitamin with folic acid [Tab-A-Ac] 1 TABLET tablet
1 tab PO DAILY
Oxycodone
1 - 2 tab PO Q4HPRN PRN (Reason: pain)
hydrocodone-acetaminophen 5-325 mg tablet
1 tab PO Q6H PRN (Reason: pain) Qty: 10 0RF
prednisone 10 mg tablets,dose pack
See Rx Instructions .ROUTE .COMPLEX Qty: 21 0RF
Rx Instructions:
orally per package directions
benzonatate 200 mg capsule
200 mg PO TID PRN (Reason: Cough) Qty: 15 0RF
acetaminophen-codeine 300-15 mg tablet
1 tab PO HS PRN (Reason: cough) Qty: 10 0RF
prednisone 50 mg tablet
50 mg PO DAILY Qty: 5 0RF
oxycodone 5 mg tablet
5 mg PO Q8H PRN (Reason: Pain) Qty: 14 0RF
lorazepam [Ativan] 1 mg tablet
1 mg PO DAILY PRN (Reason: anxiety) Qty: 10 0RF
Referrals:
Maria Esther Palacios PA [Family Provider, Family Practice] - Call in 1-3 days for appt
Amara Mcgraw MD [Active, Gastroenterology] - Call in 1-3 days for appt
Activity Restrictions/Additional Instructions:
Thank you for visiting the Emergency Department at [facility].
1. Please schedule a follow up appointment as directed. Call first thing tomorrow morning to make an appointment.
2. If indicated, please take your medications as instructed and indicated on discharge paperwork.
3. If any of your symptoms do not improve, or persist, or become more severe within 6-12 hours, please return to the emergency department for further care.
4. Please return to the emergency department if you develop a headache, neck pain/stiffness, fever greater than 100.4F, chest pain, shortness of breath, persistent nausea, vomiting, slurred speech, difficulty walking, numbness/tingling, weakness,
signs of infection or any other symptoms that are worrisome to you.
Please call [phone] if you have any questions.
Interventions
Interventions:
*Risk Screen - Suicide Last Done: 07/09/25 09:16
*Neglect/Abuse Screening Last Done: 07/09/25 09:16
TM-Kmgnzt-Sdiosbwxlr Assessment Last Done: 07/09/25 10:30
Discharge Date and Time
Print Language: ANGOLAN
[2025-07-09 11:22] LABS: Urine Character Clear (Clear)
[2025-07-09 11:31] LABS: HCG, Serum Qualitative Screen Negative
[2025-07-09 11:33] LABS: ALT (SGPT) 23 U/L (0-35); AST (SGOT) 25 U/L (14-36); Albumin 4.4 g/dl (3.5-5.0); Alkaline Phosphatase 71 U/L (38-126); Blood Urea Nitrogen 11 mg/dl (7-17); Calcium 9.0 mg/dl (8.4-10.2); Carbon Dioxide 28 mmol/L (22-30); Chloride 104 mmol/L (98-107); Glucose 98 mg/dl (70-99); Lipase 68 U/L (23-300); Potassium 3.9 mmol/L (3.5-5.1); Sodium 137 mmol/L (135-145); Total Protein 6.7 g/dl (6.3-8.2); eGFR > 60.00
[2025-07-09 13:29] VITALS: BP 98/60
== END 2025-07-09 13:30 | disposition home or self-care (01) ==
LOC: EMR 09:10
PROVIDERS: EMERGENCY PHYSICIAN Emergency Medicine; FAMILY PHYSICIAN Physician Assistant Medical
DX: R10.9 Unspecified abdominal pain (principal); G89.3 Neoplasm related pain (acute) (chronic); C85.90 Non-Hodgkin lymphoma, unspecified, unspecified site; Z98.891 History of uterine scar from previous surgery
CPT/HCPCS: 99284; 74177; 80053; 81003; 83690; 84703; 85025; Q9967

== ENCOUNTER → 2025-08-07 10:00 | Outpatient (REF) | payer OTHER, SELFPAY | LOC: HWRAD 10:00 | PROVIDERS: ATTENDING PHYSICIAN Physician Assistant Medical | DX: R10.11 Right upper quadrant pain (principal) | CPT/HCPCS: 76700 ==

== ENCOUNTER → 2025-09-10 10:42 | Outpatient (REF) | payer OTHER, SELFPAY | LOC: PET 10:42 | PROVIDERS: ATTENDING PHYSICIAN Internal Medicine Hematology & Oncology | DX: C83.07 Small cell B-cell lymphoma, spleen (principal) | CPT/HCPCS: 78815; A9552 ==